=== PATIENT | female | born 1950 | race Caucasian/White ===

== ENCOUNTER 2016-11-23 17:54 | Emergency (ER) | payer MEDICARE, OTHER ==
[~2016-11-23] VITALS: Ht 157.5 cm; Wt 65.0 kg
[~2016-11-23 17:54] MED LIST: ADVIL PO; HIGH BP MED PO
[2016-11-23 17:58] VITALS: Ht 157.5 cm; Wt 65.0 kg
[2016-11-23] MEDS ORDERED: ACYC800T PO (18:48)
[2016-11-23] MEDS ORDERED: BEN25 PO (18:49)
[2016-11-23] MEDS ORDERED: IBUP400T22 PO (18:49)
[2016-11-23] MEDS ORDERED: D-ME473S18 PO (18:49)
--- NOTE | 2016-11-23 19:07 | ERD ---
ER Documentation Chief Complaint Date/Time DATE: 11/23/16 TIME: 19:04 Chief Complaint RASH/SHINGELS? LOWER ABD ALSO HAS FLU HPI This is a 65-year-old female that presents to the ER with flulike symptoms and a rash that started 3 days ago. Rash is located all over her abdomen and is very painful. Patient denies any fevers or chills she however does have a cough. Patient went to her primary care doctor and was prescribed Keflex. Patient denies any headache. She denies any dizziness, loss of consciousness, confusion. She denies any neck pain or neck stiffness. Patient denies any chest pain or shortness of breath. ROS 12 point review of systems was done, all negative except per HPI. Medications Home Meds Active Scripts Dextromethorphan Hb-Promethazine Hcl (Promethazine DM Syrup) 473 Ml Syrup, 10 ML PO Q6H Y for COUGH, #4 OZ Prov:MILANRUBIN C 11/23/16 Ibuprofen* (Motrin*) 400 Mg Tab, 400 MG PO Q6, #30 TAB Prov:MILANRUBIN C 11/23/16 Diphenhydramine Hcl* (Benadryl*) 25 Mg Cap, 25 MG PO Q6, #30 CAP Prov:MILANRUBIN C 11/23/16 Acyclovir* (Acyclovir*) 800 Mg Tablet, 800 MG PO 5 TIMES DAILY for 7 Days, TAB Prov:MILAN,RUBIN C 11/23/16 Reported Medications [High Bp Med] No Conflict Check, PO DAILY 04/27/11 [Advil] No Conflict Check, PO DAILY Y 04/27/11 Allergies Allergies: Coded Allergies: No Known Drug Allergies (Verified Allergy, 04/27/11) PMhx/Soc Medical and Surgical Hx: pt denies Surgical Hx History of Surgery: No Anesthesia Reaction: No Hx Neurological Disorder: No Hx Respiratory Disorders: Yes (ASTHMA) Hx Cardiac Disorders: Yes (HTN,UT) Hx Psychiatric Problems: No Hx Miscellaneous Medical Probl: No Hx Alcohol Use: No Hx Substance Use: No Hx Tobacco Use: No Smoking Status: Never smoker Physical Exam Vitals Vital Signs Date Time Temp Pulse Resp B/P Pulse Ox O2 Delivery O2 Flow Rate FiO2 11/23/16 17:58 98.2 89 20 135/86 99 Physical Exam GENERAL: The patient is well developed and appropriate for usual state of health , in no apparent distress. HEENT: Atraumatic. Conjunctivae are pink. Pupils equal, round, and reactive to light. Extraocular muscles are grossly intact. Bilateral tympanic membranes are clear with no evidence of erythema, effusion or dulling of the light reflex. The oropharynx is clear with no erythema or exudates. There is no vesicular lesions in the oropharynx. CHEST: Clear to auscultation bilaterally. There are no rales, wheezes or rhonchi. HEART: Regular rate and rhythm. No murmurs, clicks, rubs or gallops. ABDOMEN: Soft, nontender and nondistended. Good bowel sounds. No rebound or guarding. No gross peritonitis. No gross organomegaly or masses. No Sheridan sign or McBurney point tenderness. NEURO: Alert and oriented. Cranial nerves II through XII are intact. Motor strength in all 4 extremities with 5/5 strength. Sensation grossly intact. Normal speech and gait. SKIN: Vesicular lesions on lower abdomen. Procedures/MDM Differential Diagnosis: dermatitis, allergic urticaria, viral exanthem, insect bite, fungal infectio ,viral exanthem, hand foot mouth disease, , impetigo, cellulitis, abscess, zainab claribel syndrome, meningocemia, necrotizing fasciitis, myositis this is a 65-year-old female presents to the ER with upper respiratory infection symptoms and a rash. Patient does have chickenpox. This patient was examined by myself and by Dr. Echeverria. He agrees with my medical decision-making. Suspicion for pneumonia is low. Patient is not hypoxic she is well-appearing afebrile and her leg examination is completely benign. Suspicion for encephalitis is low. Patient is neurologically intact with no focal neurological deficits and is acting appropriately in the exam room. Patient will be sent home with Benadryl, ibuprofen, acyclovir, promethazine. Patient is to follow-up with her primary care doctor within 1-2 days or return to ER sooner if symptoms worsen. My medical decision making was shared with the patient she understands and agrees with plan. Departure Diagnosis: Primary Impression: Chicken pox Condition: Stable Patient Instructions: Chickenpox Additional Instructions: Llame al doctor RICKI y steve jory ALEXANDRA PARA DENTRO DE 1-2 GUSMAN.Dgale a la secretaria que nosotros le instruimos hacer esta alexandra.Avise o llame si sierra condicin se empeora antes de la alexandra. Regresa aqui si peor o no mejor. RUBIN YATES Nov 23, 2016 19:07
== END 2016-11-23 18:57 | disposition home or self-care (01) ==
LOC: FTE 17:54
DX: B01.9 Varicella without complication (principal); J45.909 Unspecified asthma, uncomplicated; I10 Essential (primary) hypertension
CPT/HCPCS: 99284